=== PATIENT | female | born 1960 | race Caucasian/White ===

== ENCOUNTER 2020-05-09 13:00 | Outpatient (AMB) | payer MEDICAID, SELFPAY ==
[2020-05-09 13:00] VITALS: BMI 21.4
--- NOTE | 2020-05-09 13:00 | CWCCLIPHA ---
Review of Systems Const Constitutional: Reports body aches and Reports night sweats GI Gastrointestinal: Reports constipation and Reports other (fistula with discharge) Genitourinary: Reports hot flashes Musc Musculoskeletal: Reports back pain, Reports arthralgias (b/l thumbs) and Reports radiating pain into limb Skin/Breast Skin/Breast: Reports non-healing lesions (fistula) Aller/Immun Allergic/Immunologic: Reports seasonal rhinorrhea Exam Const General: cooperative Orientation: alert Neuro General: patient alert Cognition: normal cognition Speech: speech normal Gait: normal gait Psych Mental Status: mental status grossly normal Mood: anxious mood Affect: normal affect Speech and Movement: speech and movement normal Attitude: cooperative Thought Process: normal Thought Content: normal Judgment: judgment good Supplemental Info Assessment and Plan: 1. Gastric percutaneous fistula, chronic. [facility] reportedly unable to schedule surgical repair due to not having proof of insurance approval. Patient to send her copy and coordinate with PCP's office if additional documentation is needed. Local cellulitis resolved after 50% course of clindamycin. Follow-up at next encounter. 2. Chronic pain. Moderately controlled. Likely multiple etiologies including malignancy, gastric percutaneous fistula, arthritis (osteo vs rheumatoid) and muscular. No improvement from cortisone injections into bilateral thumbs. Improved with trial of Zohydro ER 40mg Q8H which reduced [place]wood usage to 0-2 tablets per day. Zohydro TID dosing approved through insurance today; patient to hand picker. Transient exacerbation of pain recently when venlafaxine was reduced to QD due to refilling error, which is indicative of significant neuropathic component. Continue current management with Zohydro ER 40mg, Hallwood 10mg, IBU PRN. Discussed possible reintroduction of gabapentin. Monitor. 3. Insomnia, chronic. Poorly controlled. Nighttime anxiety resulting in poor onset of sleep. Sleep hygiene reinforced (see DIESEL MECHANIC notes for additional discussion). Monitor. 4. Depression/Anxiety, chronic. Moderately controlled on venlafaxine. Continue current regimen. See DIESEL MECHANIC discussion. Clinical Pharmacist Assessment Consultation Type Referral Source: Follow-Up Visit Program Patient eligibility programs: 2.7 Palliative Care Health Conditions Health Conditions: Colon CA Stage IV metastatic to liver and bone Partial colectomy 2018 [place] gastric bypass 2001 HTN Migraine PETERSON Hx Depression Anxiety Arthritis (bilateral hands and wrists, bilateral knees) IDT Present IDT Present: MD Latoya Magallon RN Lupe Fernandez, DIESEL MECHANIC Patients stated concerns Patient's stated concerns: Difficulty coordinating with PCP's office [facility] has an incomplete referral Missed appointment with Dr. Wray yesterday Unable to get Rx from pharmacy Subjective notes Subjective Narrative: Janie is a pleasant 60 YO F who is on a teleconference today for routine Palliative Care follow-up. She reported difficulty obtaining her new fill of generic Zohydro from [facility] pharmacy yesterday and missed her appointment with Dr. Wray due to arguing with the dispensing pharmacist. She reports just receiving notification from [facility] that the medication is ready to hand picker after Dr. Wray intervened with [facility] and PharmD obtained an insurance approval on the increase in dosing from BID to TID. She had a trial of Zohydro at TID last week for about 3-4 days and reports improvement in her pain at that dosage frequency and no JHONATAN. During this period, she states her Hallwood use was 0-2 tablets per day. She rates her pain as 4/10 and currently under control. She reports confusion with her PCP's office about 2 weeks ago with her venlafaxine dosage interval and states when it was refilled at only once daily vs. TID, she experienced more pain as well as hot flashes. She describes her pain as both stabbing and aching. She states she has gabapentin at home but she is not using it. She states her PCP, Dr. Cotton, is still on sabbatical and the MA that knew her well has since departed the office and she is having trouble with quality of care coordination. She states she spoke to a Alison at [facility] who advised she was missing an insurance approval and so was unable to schedule her fistula repair. Janie states she has a copy of the approval and it is still good until June. She reports sleeping 6-10 hours a night which is interrupted frequently for urination as she drinks a lot of fluids to prevent dehydration. She reports frustration with COVID, her health and her attempts to secure affordable housing. She reports that the injections to her thumbs did not help her pain. She states the redness to her fistula site has improved but she stopped taking the Clindamycin given at last encounter due to developing a yeast infection, which has also since cleared. Medication and Supplements Medication and Supplements: Diphenhydramine 50mg HS for allergies Gabapentin 100mg BID for nerve pain (not taking) Hydrochlorothiazide 12.5 mg capsule QD Hydrocodone ER 40mg Capsules Q12H (going to increase to TID) Hydrocodone/APAP 10/325 Q6-12H PP (estimate 0-2 doses/day with Zohydro increase) Methocarbamol 750mg 1/2 - 1 T Q6H PRN muscle spasms (not taking) Stool Softener QOD Topiramate Trazodone 50mg HS PRN insomnia Venlafaxine 75mg TID for depression, hot flashes, neuropathic pain Patients Motivation/Goals Patients Motivation/Goals: Moving out of her current apartment *CWC Office Visit complete CWC Offive Visit Complete CWC Visit Complete?: No
--- NOTE | 2020-05-10 15:43 | PR.OPPALCARP ---
Vital Signs 05/09/20 13:00 Height 1.52 m Height Method Stated Weight 49.895 kg Weight Measurement Method Stated by Patient BMI 21.4 Oxygen Delivery Method Room Air Comment Patient reported pain 03/01: Dr. Wray made aware OP Palliative Care List Name, Facility and location of PCP: Arina Gutierrez; Dr. Cotton is currently unavailable so patient is seeing Gwen SINGH Review of symptoms: poor appetite; nausea; constipation; low energy level How would you rate your diet: Poor Do you have any of the following that interfere w/eating: No appetite Misc Comments: Called at 1:03 pm; Called Dr. Wray at 2:30 pm; Conference call ended 2:41 pm Email address: [email or web address] Telephone conference call was done due to no face to face appointments occurring at this time. Patient continues to see FRANCISCO Caceres for Dr. Cotton. Patient last spoke to her 2 weeks ago. Patient has had no recent labs. Patient continues to utilize [facility] in [employer] on [address] Patient stated that her weight is 110 lbs and is 5?0?. Patient is on room air. Patient rates her pain at a 4 out of 10 to the scapular area and the T3, T4, T5 areas; which is stabbing mostly but also aching. Patient states the only change to her medications was that her [place] 40 is not 3 times a day. Verbal head to toe assessment was completed with patient over the phone. Patient states that she has shortness of breath with pain and extreme exertion but is able to recover in less than 5 minutes. Patient denies having a cough. Patient reports that her fistula is still painful and is draining a lot, especially with dairy. Patient reported the drainage to be blanton jonathan color and uses maxi pads to cover it. Patient changes the pads every couple hours. No other skin issues are noted. Patient reported that the ankle swelling has resolved. List Name, Facility and location of PCP: Arina Gutierrez; Dr. Cotton is currently unavailable so patient is seeing Gwen SINGH Care Conf Coordinator: Latoya Linton date/time/location: 05/09/2020 at 1 pm in the [facility] conference room on the conference phone Purpose of meeting: Palliative care follow up appointment/symptom management or Initial appointment Participants in meeting and relationship: Leila Garcia, Patient NEVILLE Betancur MSW student financial analyst intern Latoya Allen, RN Nikole Hargrove, PharmD Dr. Brayan Wray joined conference call at the end of the discussion with the patient. How are patients wishes known: Patient cognitive/verbal Who is the decision maker for the patient: Patient Issues addressed: poor appetite; nausea; constipation; low energy level Discussion/Outcomes/Follow-up: Patient stated that her appetite is very poor and has to force herself to eat. Made the patient aware that I will have the dietitian call her sometime soon that way she does not have to wait a whole month to talk to one. Patient was agreeable. Last bowel movement was noted on Wednesday (05/07/2020) and patient does deal with constipation. Patient states that she takes a stool softener and that it helps. Patient stated that she sleeps pretty good but is able to sleep 6 to 10 hours. Her bedtime routine is a little off per the patient. Patient reported that her energy level comes and goes but she does push herself to do things even though she does not want to. Patient reported that she spoke with Alison from [facility] and had asked if the patient could fax over the insurance referral letter to her due to [facility] not having it. Patient stated that she was a little sad due to passing by her dad?s house and this will be the first Father?s Day without her dad. Emotional support was provided to the patient. Communication to other healthcare professionals: Made Dr. Wray aware of the patient?s issues. Please see NEVILLE Omer, and Eugenia AgustinD, notes for their recommendations for Dr. Wray. Review of symptoms management: Yes Symptom management recommnedations: See discussion Tenative date for F/U Patient family meeting: May 2020 List Name, Facility and location of PCP: Arina Gutierrez; Dr. Cotton is currently unavailable so patient is seeing Gwen SINGH *CWC Office Visit complete CWC Offive Visit Complete CWC Visit Complete?: No
--- NOTE | 2020-05-14 10:07 | CWCCLINC_ITS ---
Vital Signs 05/09/20 13:00 Height 1.52 m Height Method Stated Weight 49.895 kg Weight Measurement Method Stated by Patient BMI 21.4 Oxygen Delivery Method Room Air Comment Patient reported pain 03/01: Dr. Wray made aware OP Palliative Care List Name, Facility and location of PCP: Patient has not identified a surrogate medical decision maker after discussion of Advance Care Planning. Patient will once again speak to her daughters before making a decision. Will continue to explore. Prognosis: Fair Who patient wants involved in care decisions: Patient has not identified a surrogate medical decision maker after discussion of Advance Care Planning. Patient will once again speak to her daughters before making a decision. Will continue to explore. Primary Medical Surrogate Decision Maker?: Yes Existing Advance Directive: No POLST Form: No List Name, Facility and location of PCP: Patient has not identified a surrogate medical decision maker after discussion of Advance Care Planning. Patient will once again speak to her daughters before making a decision. Will continue to explore. Patient Diagnosis: Colon Cancer Prognosis: Fair Current goal of care: Life-prolonging Mental Status: Alert and Oriented Coping Status: Coping w/some difficulty Emotional Status: Tearful Learning needs: Motivational Home situation: Patient lives with a roommate. Patient has reported unhappiness with her current living situation due to living with a difficult roommate. Patient is in the process of looking for housing that is more affordable and closer to her doctors. Support System: Fair (Patient reported that since her return from [place], her daughter who lives next door has been spending more time with her. ) Financial Status: Marginal Care Conf Coordinator: Cece Linton date/time/location: 05/09/2020 1pm [facility] conference room via phone conference Patient Diagnosis: Colon Cancer Purpose of meeting: Palliative Care Follow-Up/Symptoms Management Participants in meeting and relationship: Abeba Garcia, patient Negra Black, CANCER PROGRAM CONSULTANT Nikole Hargrove, PharmD Latoya Allen, RN Nikole Amador, CANCER PROGRAM CONSULTANT Hvac Operations Technician Dr. Brayan Wray How are patients wishes known: Patient cognitive/verbal Who is the decision maker for the patient: Patient Issues addressed: Depression Anxiety Housing problems Working on appt. to [facility] for fistula removal Low energy Poor appetite Discussion/Outcomes/Follow-up: This is a 59 year-old female who presented to her Palliative Care follow-up meeting via telephone conference. Involved in the call were Dr. Wray, Palliative Care Nurse Latoya, Palliative Care Aircraft Engine Specialist Negra, Pharmacist Nikole, and Social Work Hvac Operations Technician Nikole Carreno. Approval from patient was obtained prior to the meeting, to ensure patient was aware of internet sales consultant being on the call. Patient saw the P.A. at Dr. Cotton?s office 2 weeks ago. Patient rates her pain at a 4 while taking her pain medication. Patient reported her pain is under control at this time. Patient reported the pain is in her back. Patient still has the fistula that is not healing, and drains constantly. Patient changes dressing a couple times a day. Patient reported she was able to get a hold of someone at [facility] regarding her surgery. Patient reported she spoke to Alison at [facility] and was told they needed the referral letter and requested it be faxed to them. Patient is working on sending the appropriate documentation, Rodger Agustin recommended she reach out to Dr. Cotton office for assistance if they request medical information. The patient still needs this surgery done before she can start her chemotherapy treatment. Patient?s health has also been a stressor given difficulty obtaining appointment to [facility] to address the fistula. Patient missed her appointment with Dr. Wray on 05/08/2020. Patient?s appointment was rescheduled for 05/14/[address] Wray will be calling patient for the appo intment. Patient is aware of the phone call appointment with Dr. Wray. Patient states that her appetite has not been good. Most recent weight was 110 pounds, down from 119 pounds previously. Patient has to force herself to eat. Patient denies vomiting, but does have some stomach pain and nausea. Patient will be connected to the Palliative Care Dietitian for nutritional counseling. Patient reported her energy comes and goes, and that she does get short of breath with exertion. Patient reported it usually takes 5 minutes to recover when she experiences shortness of breath. Patient is able to complete her activities of daily living, but does get tired. Patient reported she does take beaks. Patient reported the medical certification form from [employer] ([employer]) was not submitted and has to re-apply. Patient reported she is going to re-apply for [employer]. Patient walks independently, and uses an electric scooter when grocery shopping. Patient reported her sleep is good, but it was off the last few nights. She is working on a routine to get improve her sleep. Patient reported she recently purchased a new TV and feel she is able to go back in a routine where she can watch her favorite shows that help her relax. Patient reported she can also make some warm teas or shelly and that also helps her relax and fall asleep. She is hoping this will help improve her sleep. Will continue to monitor. Patient mood and affect was within normal limits. Patient thought process was congruent with thought content. No disturbances to speech patterns. Patient was emotional at times during the call. CANCER PROGRAM CONSULTANT provided emotional support, active and reflective listening, and feedback. Patient is currently taking anti- depressants. Patient reported despite the anti-depressants she has been feeling depressed and anxious. Patient reported that at times she does find it difficult to get out of bed, but she sets goals for herself such as making sure she keeps a hairbrush by her bedside to ensure she brushes her hair every day. CANCER PROGRAM CONSULTANT explained setting small goals as she is doing is a good step and also a positive way to focus on self-care. Patient would continue to benefit from setting small goals for herself. Patient reported she does have to find a way to cope with her feelings. Patient reported one of the stressors is COVID-19 and having had cut everything has been overwhelming. Patient asked if it was ok if she chooses to not watch the news or media surrounding COVID-19 because she knows people that tell her not to do that. Patient reported she is aware of it, but prefers to not watch the media because the content does affect her. CANCER PROGRAM CONSULTANT reassured patient it was ok for her to minimize the time spent watching the news and media surrounded COVID or any other issue that may affect her mood because it is a good way to care for her mental health. Patient reported she also passed by her father?s old home, but reported she should have not done that because it made her emotional. Patient?s father in 2019 and it was her first father?s day without her father. CANCER PROGRAM CONSULTANT recommended patient to focus on the positive memories she has with her father. Patient reported she has a picture of him in her room and she discussed the time the picture was taken. Patient denied having thoughts of harm to self or others. CANCER PROGRAM CONSULTANT discussed with patient interventions to implement to help address depression and anxiety. Patient was open to the interventions and willing to try it. CANCER PROGRAM CONSULTANT recommended patient acknowledge her thoughts and feelings primarily. CANCER PROGRAM CONSULTANT also recommended patient then journal her thoughts and feelings to help her recognize patterns in her thoughts. CANCER PROGRAM CONSULTANT explained negative thoughts can elicit negative feelings. CANCER PROGRAM CONSULTANT recommended that next to each negative thought write down a coping strategy she can use in order to help challenge that thought and replace it with a more positive way of coping. Patient agreed that being able to recognize her thought patterns can possibly help her. CANCER PROGRAM CONSULTANT also recommended using positive self-talk to help challenge her thoughts and feelings. CANCER PROGRAM CONSULTANT explained that getting in a pattern of rethinking her negative thoughts and replacing them with positive ways to cope can help her train her mind to think of more positive ways to cope. CANCER PROGRAM CONSULTANT explained keeping a journal can help her have something to reference back at any point. Patient was in agreement and reported she did have a notebook and will take it out. CANCER PROGRAM CONSULTANT reinforce use of self-care strategies. Patient reported she did enjoy lotions and has purchased some to use. Patient r eported that she also began to saw and has fixed things for her daughter and granddaughter and it is something that helps her relax. CANCER PROGRAM CONSULTANT also recommended use of medication and relaxation music and recommended YouTube or applications on the phone. CANCER PROGRAM CONSULTANT explained these are things she can also implement at night before bed. CANCER PROGRAM CONSULTANT inquired if patient had reach out to [facility]. Patient reported she had not reach out. CANCER PROGRAM CONSULTANT recommended contacting them as individual counseling would benefit her. CANCER PROGRAM CONSULTANT provided the phone number. CANCER PROGRAM CONSULTANT also recommended the use of support groups. CANCER PROGRAM CONSULTANT recommended the [facility], which is not open. CANCER PROGRAM CONSULTANT explained the various groups they offer such as depression, anxiety, self-care, cooking, meditation, and more. CANCER PROGRAM CONSULTANT explained services are free and open to the community. CANCER PROGRAM CONSULTANT also reported they can also help with mental health referrals if necessary. CANCER PROGRAM CONSULTANT provided patient with the phone number and address of the location. CANCER PROGRAM CONSULTANT also emailed patient a calendar for the [facility] on 05/13/2020. Patient recently returned from her trip to [place] where she was able to spent time with her daughter and her grandchildren. Patient reported she had a very good time. Patient expressed that she was able to grow closer to her family during this trip, which made her very happy. Patient reported her daughter who lives next door has been more involved with her and she is not sure if it was because she is jealous patient spent time with her other daughter or because she is realizing she should spend more time. Patient reported whatever it is se is enjoying spending more time with her. Patient mentioned good news she received which was her granddaughter who lives next door did test negative for COVID-19. Now, patient reported she is able to spend time with her granddaughter. Patient has her granddaughter to motivate her to get outside in the sunshine. Patient also enjoys going on walks with her granddaughter. Patient has a support system consisting of her daughters. Patient reported she has felt frustrated trying to find a new location to live. She reported she has a few places she is working on following-up. Patient r eported she stopped by one location in [place], but was confused by the sign indicating the apartments were only for those who have worked in agricultural. Patient provided the location. CANCER PROGRAM CONSULTANT reported will look into it because the information could be incorrect. CANCER PROGRAM CONSULTANT called the [facility] patient mentioned on 05/10/2020 and left a voicemail to call CANCER PROGRAM CONSULTANT back. Patient has not received the information CANCER PROGRAM CONSULTANT emailed on housing resources. CANCER PROGRAM CONSULTANT will try to mail them given multiple attempts to email patient, and she has not received the resources. Patient reported the worker who she has been working with Chris Meadows who is also trying to help with housing contacted her, and patient plans to return the call. Will reach out to patient within a week to check-in and provide housing information obtained. Patient provided a new phone number in case hers did not work: . See Latoya Allen RN note for further nursing evaluation and medical concerns. See Rodger Agustin notes for recommendations on medications and medical concerns. Tenative date for F/U Patient family meeting: May 2020 Advanced Directive: No POLST Form: No Primary Medical Surrogate Decision Maker?: Yes List Name, Facility and location of PCP: Patient has not identified a surrogate medical decision maker after discussion of Advance Care Planning. Patient will once again speak to her daughters before making a decision. Will continue to explore. *CWC Office Visit complete CWC Offive Visit Complete CWC Visit Complete?: Yes
== END 2020-05-09 14:40 | disposition home or self-care (01) ==
LOC: HODCWC 14:04
PROVIDERS: PCP Family Medicine; Referring Provider Family Medicine; Visit Provider Family Medicine
DX: Z51.5 Encounter for palliative care (principal)